=== PATIENT | female | born 1970 | race Caucasian/White ===

== ENCOUNTER 2022-10-01 10:11 | Emergency (ER) | payer SELFPAY ==
[~2022-10-01] VITALS: Ht 152.4 cm; Wt 59.4 kg
[2022-10-01 10:25] VITALS: BP 122/70
[2022-10-01] MEDS ORDERED: KETOROLAC 30 MG/ML VIAL IM ONE (12:15)
[2022-10-01] MEDS ORDERED: ACETAMINOPHEN EXTRA STRENGTH 500 MG TAB PO ONE (12:15)
[2022-10-01] MEDS ORDERED: ASPI-1198 PO (12:18)
[2022-10-01] MEDS ORDERED: ONDA-188 SL (12:18)
[2022-10-01] MEDS ORDERED: ACET-10509 PO (12:18)
[2022-10-01 13:07] VITALS: BP 126/72
--- NOTE | 2022-10-01 13:07 | NUR ---
Patient discharged with v/s stable. Written and verbal after care instructions ABOUT HEAD INJURY, GENERAL HEADACHE WITHOUT CAUSE given and explained. Patient alert, oriented and verbalized understanding of instructions. Ambulatory with steady gait. All questions addressed prior to discharge. ID band removed. Patient advised to follow up with PMD. Rx of TYLENOL EXTRA STRENGTH, EXCEDRIN MIGRAINE, ZOFRAN given. Patient educated on indication of medication including possible reaction and side effects. Opportunity to ask questions provided and answered.
== END 2022-10-01 13:07 | disposition home or self-care (01) ==
LOC: MED 10:11
DX: F07.81 Postconcussional syndrome (principal); R11.10 Vomiting, unspecified; V49.88XA Car occupant (driver) (passenger) injured in other specified transport accidents, initial encounter; Y93.89 Activity, other specified; Y92.89 Other specified places as the place of occurrence of the external cause; Y99.8 Other external cause status
CPT/HCPCS: 70450; 81025; 99284; J1885